=== PATIENT | male | born 1980 | race Caucasian/White ===

== ENCOUNTER 2019-09-27 18:56 | Emergency (ER) | payer BC ==
[~2019-09-27] VITALS: Ht 188 cm; Wt 109.8 kg
[~2019-09-27 18:56] MED LIST: NAPROSYN500 MG PO
[2019-09-27 19:40] LABS: HEMATOCRIT 47.5 % (42.0-52.0); HEMOGLOBIN 16.2 gm/dL (14.0-18.0); MCH 31.3 pg (26.0-34.0); MCHC 34.1 g/dL (28.0-37.0); MCV 91.7 fL (80.0-100.0); PLATELET COUNT 160 thou/uL (150-400); RBC 5.18 mil/uL (4.50-6.00)
[2019-09-27 19:53] LABS: CALCIUM 8.9 mg/dL (8.5-10.1); CREATININE 1.1 mg/dL (0.7-1.3); POTASSIUM 3.2 mmol/L (3.5-5.1)
[2019-09-27 19:59] LABS: ALBUMIN 4.5 g/dL (3.4-5.0); TOTAL BILIRUBIN 0.7 mg/dL (<0.1-1.0); TOTAL PROTEIN 7.8 g/dL (6.4-8.2)
[2019-09-27 20:04] LABS: URINE BILIRUBIN NEGATIVE (Negative); URINE BLOOD NEGATIVE (Negative); URINE CLARITY CLEAR; URINE COLOR YELLOW; URINE GLUCOSE-RANDOM* NEGATIVE (Negative); URINE KETONES NEGATIVE (Negative); URINE LEUKOCYTES-REFLEX NEGATIVE (Negative); URINE NITRITE-REFLEX NEGATIVE (Negative); URINE PROTEIN (DIPSTICK) NEGATIVE (Negative); URINE SPECIFIC GRAVITY 1.015 (1.005-1.035); URINE UROBILINOGEN 0.2 E.U./dl (0.2-1.0)
[2019-09-27 20:06] LABS: ABSOLUTE NEUTROPHILS 2.9 thou/uL (1.4-8.2)
[2019-09-27 20:07] LABS: PLATELET ESTIMATE NORMAL
[2019-09-27] MEDS ORDERED: ZOFRAN ODT4 MG PO (20:16)
[2019-09-27] MEDS ORDERED: BENTYL 20 MG TA20 M1 PO (20:16)
[2019-09-27 20:24] VITALS: BP 123/81
== END 2019-09-27 20:24 | disposition home or self-care (01) ==
LOC: ER 18:56
PROVIDERS: Nurse Practitioner Family
DX: K52.9 Noninfective gastroenteritis and colitis, unspecified (principal); R11.2 Nausea with vomiting, unspecified